=== PATIENT | male | born 1965 | race Caucasian/White ===

== ENCOUNTER 2020-11-09 05:34 | Emergency (ER) | payer OTHER ==
--- NOTE | 2020-11-09 05:47 | ED Physician Documentation ---
PD HPI ABD PAIN - Stated complaint Stated Complaint: N/V, ABD PX - Chief complaint Chief Complaint: Abd Pain - History obtained from History obtained from: Patient - History of Present Illness Timing - onset: Enter time (00:00 (midnight)), Today Timing - details: Abrupt onset, Constant, Waxing and waning Pain level now: 8 Quality: Pain Location: Epigastric (across upper abdomen but predominantly epigastric) Radiation: Other (does not radiate) Improved by: Other (no ameliorating factors) Worsened by: Other (no exacerbating factors) Associated symptoms: Nausea, Vomiting. No: Fever, Diarrhea Similar symptoms before: Has not had sx before Recently seen: Not recently seen - Additional information Additional information: rapid onset of pain across upper abdomen, predominantly epigastric, approximately midnight while at home at rest but awake. pain has been constant but waxing and waning in intensity. No ameliorating nor exacerbating factors. Also having nausea, vomiting. Denies fever. Has not had this pain before. Review of Systems Constitutional: denies: Fever Cardiac: reports: Reviewed and negative Respiratory: reports: Reviewed and negative GI: reports: Abdominal Pain, Nausea, Vomiting. denies: Diarrhea : denies: Dysuria, Frequency PD PAST MEDICAL HISTORY - Past Medical History Past Medical History: No - Past Surgical History Past Surgical History: No - Present Medications Home Medications: Ambulatory Orders Medication Instructions Recorded Confirmed Ondansetron Odt [Zofran] 4 mg TL Q6H PRN #14 tablet 11/09/20 Oxycodone HCl/Acetaminophen 1 - 2 each PO Q6H PRN #14 tablet 11/09/20 [Percocet 5-325 mg Tablet] - Allergies Allergies/Adverse Reactions: Allergies Allergy/AdvReac Type Severity Reaction Status Date / Time No Known Drug Allergies Allergy Verified 11/09/20 05:42 - Social History Does the pt smoke?: No Smoking Status: Never smoker Does the pt drink ETOH?: No Does the pt have substance abuse?: No - Immunizations Immunizations are current?: Yes PD ED PE NORMAL - Vitals Vital signs reviewed: Yes - General General: Alert and oriented X 3, Well developed/nourished, Other (obvious painful distress) - Cardiac Cardiac: RRR, No murmur - Respiratory Respiratory: No respiratory distress, Clear bilaterally - Abdomen Abdomen: Soft, Non distended, Other (mild/moderate TTP epigastrium > RUQ. no rebound, no guarding) Results - Vitals Vitals: Vital Signs - 24 hr 11/09/20 11/09/20 11/09/20 05:42 05:44 06:33 Temperature 37 C 37 C Heart Rate 72 72 65 Respiratory 18 18 15 Rate Blood Pressure 149/84 H 149/84 H 133/81 H O2 Saturation 99 99 95 11/09/20 11/09/20 08:01 08:19 Temperature Heart Rate 59 L 60 Respiratory 15 16 Rate Blood Pressure 115/70 115/70 O2 Saturation 95 99 Oxygen O2 Source Room air - Labs Labs: Laboratory Tests 11/09/20 11/09/20 05:53 05:53 WBC 12.1 H RBC 4.82 Hgb 14.5 Hct 42.4 MCV 88.0 MCH 30.1 MCHC 34.2 RDW 11.9 L Plt Count 227 MPV 10.6 Neut # (Auto) 9.3 H Lymph # (Auto) 1.9 [place] # (Auto) 0.6 Eos # (Auto) 0.1 Baso # (Auto) 0.1 Absolute Nucleated RBC 0.00 Nucleated RBC % 0.0 Sodium 139 Potassium 3.5 Chloride 101 Carbon Dioxide 26 Anion Gap 12.0 BUN 25 H Creatinine 1.0 Estimated GFR (MDRD) 78 L Glucose 159 H Calcium 9.5 Total Bilirubin 0.8 AST 15 ALT 24 Alkaline Phosphatase 42 Total Protein 7.6 Albumin 4.4 Globulin 3.2 Albumin/Globulin Ratio 1.4 Lipase 34 - Rads (name of study) RUQ US Radiology: Prelim report reviewed, See rad report PD MEDICAL DECISION MAKING - ED course Complexity details: reviewed results, re-evaluated patient, considered differential, d/w patient ED course: epigastric pain, nausea/vomiting since approximately midnight. Blood test results are reassuring, with mild leukocytosis (wbc 12.1), normal LFTS and normal lipase. He is given 1 liter NS IV, as well as IV zofran 4mg, IV dilaudid 1mg, and IV toradol 30mg. On reevaluation, he is AAOx3 and in NAD. He reports excellent relief of his symptoms after these interventions. US shows multiple mobile gallstones, borderline GB wall thickness. CBD mildly dilated at 7mm. Results d/w patient. Discharged with prescription (sent to [facility] [place]) for zofran and percocet. Instructed to follow up with general surgery Departure - Departure Disposition: 01 Home, Self Care Clinical Impression: Biliary colic Condition: Good Instructions: ED Gallstone W Biliary Colic Follow-Up: Liborio Flowers MD [Provider Admit Priv/Credential] - (Call to arrange for next available appointment) Prescriptions: Oxycodone HCl/Acetaminophen [Percocet 5-325 mg Tablet] 1 - 2 each PO Q6H PRN #14 tablet PRN Reason: pain Ondansetron Odt [Zofran] 4 mg TL Q6H PRN #14 tablet PRN Reason: Nausea / Vomiting Comments: Prescriptions for ondansetron (anti-nauseant) and oxycodone/acetaminophen (pain medication) have been submitted to [facility] in [place]. I am prescribing a short course of narcotic pain medication for you. These are potentially dangerous and addictive medications that should be used carefully. These medications may constipate you. Take an [id number]-[id number]-musxbyn stool softener (docusate) twice daily with plenty of water while taking these medications. If you go 24 hours without a bowel movement, take [id number] miralax, per package instructions. Do not drink or drive while taking these medications. If you received narcotic or sedating medications while in the emergency department, do not drive for 24 hours. Store this medication in a safe, secure place and out of reach of children. It is a violation of federal law to give or sell this medication to another person or to use in a manner other than prescribed. The ED will not refill narcotic prescriptions, including prescriptions lost or stolen. To dispose of unwanted medications: 1. [facility] at [address] in [place] has a medication drop box. They accept prescription medications (in pill form) Saturday through Saturday 9:00 a.m. to 5:00 p.m. 2. [facility] [employer] accepts prescription medications (in pill form only) for disposal year round. Call for more information. 3. Contact the [facility] for the next [facility] sponsored prescription drug collection event. , [phone], or [phone];
[2020-11-09] MEDS ORDERED: HYDROmorphone 1 MG/ML CARPUJECT IVP STA (06:00)
[2020-11-09] MEDS ORDERED: SODIUM CHLORIDE 0.9% 1,000 ML IV STA (06:00)
[2020-11-09] MEDS ORDERED: ONDANSETRON 4 MG/2 ML VIAL IVP STA (06:00)
[2020-11-09 06:11] LABS: BASOPHILS # (AUTO) 0.1 10^3/uL (0.0-0.1); BASOPHILS % (AUTO) 0.8 %; EOSINOPHILS # (AUTO) 0.1 10^3/uL (0.0-0.7); EOSINOPHILS % (AUTO) 0.6 %; HCT - HEMATOCRIT 42.4 % (42.0-52.0); HGB - HEMOGLOBIN 14.5 g/dL (14.0-18.0); LYMPHOCYTES # (AUTO) 1.9 10^3/uL (1.5-3.5); MEAN CORPUSCULAR HEMOGLOBIN 30.1 pg (27.0-31.0); MEAN CORPUSCULAR HGB CONC 34.2 g/dL (32.0-36.0); MEAN PLATELET VOLUME 10.6 fL (7.4-11.4); MONOCYTES # (AUTO) 0.6 10^3/uL (0.0-1.0); MONOCYTES % (AUTO) 4.8 %; NEUTROPHILS # (AUTO) 9.3 10^3/uL (1.5-6.6); NEUTROPHILS % (AUTO) 77.2 %; PLT - PLATELET COUNT 227 10^3/uL (130-450); RED BLOOD COUNT 4.82 10^6/uL (4.70-6.10); RED CELL DISTRIBUTION WIDTH 11.9 % (12.0-15.0); WHITE BLOOD COUNT 12.1 x10^3/uL (4.8-10.8)
[2020-11-09] MEDS ORDERED: KETOROLAC 30 MG/ML VIAL IVP STA (06:15)
[2020-11-09 06:22] LABS: ALBUMIN 4.4 g/dL (3.2-5.5); ALBUMIN/GLOBULIN RATIO 1.4 (1.0-2.2); BILIRUBIN,TOTAL 0.8 mg/dL (0.2-1.0); CALCIUM 9.5 mg/dL (8.5-10.3); POTASSIUM 3.5 mmol/L (3.5-5.0); TOTAL PROTEIN 7.6 g/dL (6.7-8.2)
[2020-11-09 08:02] VITALS: BP 115/70
--- NOTE | 2020-11-09 08:17 | Ultrasound Report ---
PROCEDURE: Abdomen Limited INDICATIONS: abd. pain TECHNIQUE: Real-time scanning was performed of the abdominal and retroperitoneal organs, with image documentatio n. COMPARISON: None. FINDINGS: Liver: Liver is normal in size and increased in echotexture. Gallbladder: Collar demonstrates multiple areas of increased echogenicity. Wall thickness is within n ormal limits measuring 2.6 cm. No pericholecystic fluid. Biliary ducts: Intrahepatic bile ducts are non-dilated. Extrahepatic bile duct caliber measures 7 m m. Normal is 6-7 mm or less in diameter, or 10 mm or less post-cholecystectomy. Pancreas: Visualized portions of the pancreas are sonographically normal. Spleen: Spleen is normal in size and homogeneous in echotexture. Kidneys: Right kidney measures 10.4 cm long. No hydronephrosis or nephrolithiasis. No solid masses . IMPRESSION: 1. Cholelithiasis without imaging evidence of cholecystitis. 2. Common bile duct is at the upper limits of normal in size. 3. Hepatic steatosis. The above findings are concordant with preliminary report. Reviewed by: Shannon Nguyen MD on 11/09/2020 8:16 AM PDT Approved by: Shannon Nguyen MD on 11/09/2020 8:16 AM PDT Station ID: [id number]
== END 2020-11-09 08:20 | disposition home or self-care (01) ==
LOC: ED 05:34
DX: K80.50 Calculus of bile duct without cholangitis or cholecystitis without obstruction (principal)
CPT/HCPCS: 36415; 76705; 80053; 83690; 85025; 96361; 96374; 96375; 99284; J1170

== ENCOUNTER 2020-11-17 12:44 | Day surgery (SDC) | payer OTHER ==
[2020-11-17] MEDS ORDERED: LACTATED RINGERS 1,000 ML IV ONE ×2 (12:51→15:45)
[2020-11-17] MEDS ORDERED: CEFAZOLIN SODIUM IN 0.9 % NACL 2 GM/100 ML BAG IV ONE (13:01)
[2020-11-17] MEDS ORDERED: BUPIVACAINE 0.5% PF 10 ML VIAL ONE (13:50)
--- NOTE | 2020-11-17 13:57 | ANESTHESIA ---
Pre-Anesthesia VS, & Labs - Diagnosis cholecystis - Procedure lap santy Vital Signs: Temp Pulse Resp BP Pulse Ox 35.7 C L 66 16 130/89 H 97 11/17/20 12:54 11/17/20 12:54 11/17/20 12:54 11/17/20 12:54 11/17/20 12:54 Height: 5 ft 7 in Weight (kg): 78 kg Body Mass Index: 26.9 BMI Classification: Overweight - NPO >8 hours Home Medications and Allergies Allergies/Adverse Reactions: Allergies Allergy/AdvReac Type Severity Reaction Status Date / Time No Known Drug Allergies Allergy Verified 11/09/20 05:42 Anes History & Medical History - Anesthetic History Anesthesia Complications: reports: No previous complications - Medical History Cardiovascular: reports: None Pulmonary: reports: None Gastrointestinal: reports: None Urinary: reports: None Musculoskeletal: reports: None Endocrine/Autoimmune: reports: None Skin: reports: None Smoking Status: Never smoker History of Cancer?: No Exam General: Alert Dental: WNL Mouth Opening: Greater than 4 Fingerbreadths Mallampati classification: II Thyromental Distance: greater than 6 cm Respiratory: Lungs clear Cardiovascular: Regular rate Plan Anesthesia Type: General Consent for Procedure(s) Verified and Reviewed: Yes Code Status: Attempt Resuscitation ASA classification: 1-Healthy patient Is this case an emergency?: No
[2020-11-17] MEDS ORDERED: MORPHINE 2 MG/ML CARPUJECT IVP PRN (13:58)
[2020-11-17] MEDS ORDERED: NALOXONE 0.4 MG/ML VIAL IVP PRN (13:58)
[2020-11-17] MEDS ORDERED: ePHEDrine 50 MG/ML VIAL IVP PRN (13:58)
[2020-11-17] MEDS ORDERED: ATROPINE ABBOJECT 1 MG/10 ML SYRINGE IVP PRN (13:58)
[2020-11-17] MEDS ORDERED: ONDANSETRON 4 MG/2 ML VIAL IVP PRN ×2 (13:58→16:27)
[2020-11-17] MEDS ORDERED: HYDROmorphone 0.5 MG/0.5 ML SYRINGE IVP PRN (13:58)
[2020-11-17] MEDS ORDERED: fentaNYL 100 MCG/2 ML VIAL IVP PRN (13:58)
[2020-11-17] MEDS ORDERED: METOCLOPRAMIDE 10 MG/2 ML VIAL IVP PRN (13:58)
[2020-11-17] MEDS ORDERED: LACTATED RINGERS 1,000 ML IV SCH (14:00)
[2020-11-17] MEDS ORDERED: ROCURONIUM 50 MG/5 ML VIAL ONE ×2 (14:08→15:15)
[2020-11-17] MEDS ORDERED: PROPOFOL 200 MG/20 ML VIAL IVP ONE (14:08)
[2020-11-17] MEDS ORDERED: MIDAZOLAM 2 MG/2 ML VIAL ONE (14:09)
[2020-11-17] MEDS ORDERED: ONDANSETRON 4 MG/2 ML VIAL ONE (14:32)
[2020-11-17] MEDS ORDERED: DEXAMETHASONE 4 MG/ML VIAL ONE (14:32)
[2020-11-17] MEDS ORDERED: BUPIVACAINE 0.5% PF 30 ML VIAL SUBQ ONE ×2 (14:41)
[2020-11-17] MEDS ORDERED: GLYCOPYRROLATE 1 MG/5 ML VIAL ONE (14:49)
[2020-11-17] MEDS ORDERED: KETOROLAC 30 MG/ML VIAL ONE (15:27)
[2020-11-17] MEDS ORDERED: SUGAMMADEX 200 MG/2 ML VIAL IVP ONE (15:31)
[2020-11-17] MEDS ORDERED: HYDROmorphone 1 MG/ML CARPUJECT ONE (15:34)
--- NOTE | 2020-11-17 15:57 | ANESTHESIA POST OP EVALUATION ---
Anesthesia Post Eval - Post Anesthesia Eval Vitals: Last Vital Signs Temp 37 C 11/17/20 15:51 Pulse 65 11/17/20 15:51 Resp 10 L 11/17/20 15:51 BP 123/83 H 11/17/20 15:51 Pulse Ox 97 11/17/20 15:51 CV Function Including HR & BP: Stable Pain Control: Satisfactory Nausea & Vomiting: Negative Mental Status: Baseline Respiratory Status: Airway Patent Hydration Status: Satisfactory Anesthesia Complications: None
--- NOTE | 2020-11-17 16:06 | OPERATIVE REPORT ---
Operative Report - General Procedure Date: 11/17/20 Planned Procedure: Laparoscopic cholecystectomy Pre-Op Diagnosis: Symptomatic cholelithiasis Procedure Performed: Laparoscopic cholecystectomy Post Op Diagnosis: Same - Procedure Note Primary Surgeon: Ayo Ralph MD Anesthesia Provider: Briana Abbott CRNA Anesthesia Technique: General ET tube IV Fluids (mL): 1,500 Estimated Blood Loss (mL): 2 Drain/Tube Type: Other (None.) Indications: Symptomatic holelithiasis (postprandial pain) Findings: Gallbladder with evidence of previous inflammation Complications: None. - Other Other Information/Narrative: After verbal and written informed consent was obtained detailing the operation, the alternatives to the operation including no operation, risks of infection, bleeding requiring transfusion with its risks, nerve injury, and and after I met with the patient confirming the surgery, the patient was brought to the operative suite and placed supine on the operating table. Great care was taken to avoid pressure points to prevent pressure necrosis or nerve injury. Monitoring devices were applied along with TEDs and pneumatic compressive stockings (to prevent DVT). The patient received preoperative antibiotics for surgical prophylaxis. Taco Abbott CRNA sedated and anesthetized the patient for the entire procedure. The patient was prepped and draped in usual sterile manner. A "time in" then confirmed that the patient was identified with 3 identifiers (name, date, and medical record number), the history and physical was in the chart, the signed consent confirming the procedure was in the chart, the patient was in the correct position, the aforementioned prophylactic measures were in place were given, we had the correct personnel and equipment to complete the procedure and that anesthesia, and the surgical team was given an opportunity to express any concerns. With the agreement of everyone in the room, we proceeded with the operation. The initial incision was at the umbilicus and dissection to the linea alba was completed using blunt dissection. The linea alba was grasped with a Girish and incised. In a similar manner the peritoneum was grasped and incised using Metzenbaum scissors. In this location, a 12 mm blunt tipped, balloon tipped port was placed and the balloon was inflated to keep the port in position. The abdominal cavity was insufflated with carbon dioxide to a steady-state pressure of 15 mmHg. 3 additional 5 mm ports were placed in standard locations for laparoscopic cholecystectomy (subxiphoid and 2 right subcostal) under direct vision of the 30 degree laparoscope and without incident. The patient was then placed in reverse Trendelenburg position and was rotated slightly to their left. The gallbladder fundus was grasped with an atraumatic grasper. Multiple adhesions had to be taken down by blunt and sharp dissection along with electrocautery. Eventually, I identified the infundibulum and this was then grasped and retracted superiorly and laterally. Dissection was then begun at the angle of Calot. The cystic duct and (slightly medially and posteriorly), cystic artery were clearly identified. The critical view was obtained and a photograph taken. 2 clips proximally and one clip distally were used to control both the cystic duct and cystic artery. The clips were carefully placed to avoid occluding the juncture with the common bile duct. Both the cystic duct and then the cystic artery were then transected with laparoscopic felix. The gallbladder was then removed from its fossa in a retrograde manner using electrocautery. With the 30 degree 5 mm scope in the subxiphoid position, the gallbladder was placed in an Endo Catch bag to be extracted through the 12 mm port site. I irrigated the right upper quadrant with liter of warm sterile saline and the area was aspirated dry. I inspected the gallbladder fossa and there was no bleeding or bile leak. Clips on the cystic duct and cystic artery appeared to be secure. I briefly visually explored the abdomen. There was no other evidence of overt pathology. I injected the port sites at the peritoneal, fascial, and skin levels under direct vision with 0.5% Marcaine. All ports and the Endo Catch containing the gallbladder were removed. Following gallbladder removal, the remaining carbon dioxide was expelled from the abdomen. The fascia the umbilicus was approximated using 2 [id number] 0 Vicryl sutures. The skin at each port site was approximated using a subcuticular 4-0 Monocryl. The skin was cleaned of its prep and Dermabond applied. At this point a "timeout" was performed that confirmed that all counts were correct, the procedure that was performed, the blood loss, the IV fluids administered, the patient's condition and any concerns of the operating team had. Dressings were then applied. Having tolerated the procedure well, the patient was extubated and taken to recovery room in good and stable condition. The plan is for outpatient discharge when the patient is adequately recovered. This document was created in part using voice recognition technology. Because of the inherent limitations of the system, occasional same sounding word substitutions and grammatical errors do occur and persist despite proofreading. Please read this document for context.
[2020-11-17] MEDS ORDERED: MORPHINE 10 MG/ML VIAL IVP PRN (16:28)
[2020-11-17] MEDS ORDERED: HYDROcod/ACETAM 5/325 MG TABLET PO PRN (16:30)
[2020-11-17 17:59] VITALS: BP 106/55
== END 2020-11-17 18:25 | disposition home or self-care (01) ==
LOC: SDS 12:44 → MS2 16:04 → SDS 18:25
PROVIDERS: ATTEND Surgery
PROC: 0FT44ZZ Resection of Gallbladder, Percutaneous Endoscopic Approach (ICD-10-PCS; principal; 2020-11-17 13:45)
DX: K80.10 Calculus of gallbladder with chronic cholecystitis without obstruction (principal); Z87.891 Personal history of nicotine dependence
CPT/HCPCS: 47562; J0690; J1170; J7120